=== PATIENT | female | born 1955 | race Caucasian/White ===

== ENCOUNTER 2021-02-09 14:36 | Outpatient (CLI) | payer MEDICARE, BC | END 2021-02-09 14:37 | disposition home or self-care (01) | LOC: CSHULT 14:36 | PROVIDERS: ATTEND Family Medicine | DX: I65.22 Occlusion and stenosis of left carotid artery (principal) | CPT/HCPCS: 93880 ==

== ENCOUNTER 2021-02-24 09:17 | Outpatient (CLI) | payer MEDICARE, BC | END 2021-02-24 09:18 | disposition home or self-care (01) | LOC: CSHCT 09:17 | PROVIDERS: ATTEND Family Medicine | DX: I65.22 Occlusion and stenosis of left carotid artery (principal); I65.03 Occlusion and stenosis of bilateral vertebral arteries | CPT/HCPCS: 70498; 82565 ==

== ENCOUNTER 2021-11-24 14:18 | Outpatient (CLI) | payer MEDICARE, BC | END 2021-11-24 14:19 | disposition home or self-care (01) | LOC: CSHMAMMO 14:18 | PROVIDERS: ATTEND Family Medicine | DX: Z12.31 Encounter for screening mammogram for malignant neoplasm of breast (principal) | CPT/HCPCS: 77063; 77067 ==

== ENCOUNTER 2024-10-28 13:51 | Outpatient (CLI) | payer MEDICARE, BC | END 2024-10-28 13:52 | disposition home or self-care (01) | LOC: CSHULT 13:51 | PROVIDERS: ATTEND Family Medicine | DX: I65.01 Occlusion and stenosis of right vertebral artery (principal); I65.22 Occlusion and stenosis of left carotid artery | CPT/HCPCS: 93880 ==